=== PATIENT | male | born 1965 | race American Indian/Alaskan Native ===

== ENCOUNTER 2016-09-23 13:44 | Emergency (ER) | payer OTHER ==
[2016-09-23 14:49] VITALS: BP 137/90
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
[2016-09-23] MEDS: TORADOL IM ONE (20:35)
[2016-09-23] MEDS: VALIUM PO ONE (20:36)
== END 2016-09-23 20:30 | disposition home or self-care (01) ==
LOC: ED 13:44
DX: S13.4XXA Sprain of ligaments of cervical spine, initial encounter (principal); F17.200 Nicotine dependence, unspecified, uncomplicated; V49.49XA Driver injured in collision with other motor vehicles in traffic accident, initial encounter; Y93.9 Activity, unspecified; Y92.9 Unspecified place or not applicable; Y99.9 Unspecified external cause status
CPT/HCPCS: 96372; 99282; J1885

== ENCOUNTER 2017-06-30 10:28 | Emergency (ER) | payer SELFPAY ==
[2017-06-30] MEDS ORDERED: MOTRIN PO ONE (16:05)
[2017-06-30 16:31] LABS: Basophils % (Auto) 0.6 % (0.0-1.8); Eosinophils # (Auto) 0.1 K/mm3 (0.0-0.4); Eosinophils % (Auto) 1.8 % (0.0-4.3); Hematocrit 41.6 % (35.5-45.6); Hemoglobin 13.9 gm/dl (11.8-15.2); Lymphocytes # (Auto) 2.5 K/mm3 (1.2-5.4); Lymphocytes % (Auto) 34.5 % (13.4-35.0); Mean Corpuscular HGB Conc 33 % (32-34); Mean Corpuscular Hemoglobin 30 pg (28-32); Mean Corpuscular Volume 89 fl (84-94); Monocytes # (Auto) 0.5 K/mm3 (0.0-0.8); Monocytes % (Auto) 6.5 % (0.0-7.3); Platelet Count 226 K/mm3 (140-440); Red Blood Count 4.66 M/mm3 (3.65-5.03); Red Cell Distribution Width 14.2 % (13.2-15.2)
[2017-06-30 16:43] LABS: BUN/Creatinine Ratio 16; Blood Urea Nitrogen 14 mg/dL (9-20); Hemolysis Index 9
--- NOTE | 2017-06-30 16:49 | Emergency Department Report ---
ED Male HPI - General Chief complaint: Skin/Abscess/Foreign Body Stated complaint: BOIL Time Seen by Provider: 06/30/17 15:30 Source: patient Mode of arrival: Ambulatory Limitations: No Limitations - History of Present Illness Initial comments: 52-year-old male past medical history none presents with complaint of one week of left-sided testicular discomfort. Patient states that he has felt some testicular swelling and external discomfort on scrotum. Denies any trauma denies any falls denies any dysuria or hematuria or increased urinary frequency. Denies fevers or chills denies abdominal pain. Patient is awake alert and oriented 3 not in acute distress. MD Complaint: testicle pain, testicle swelling Onset/Timin -: week(s) Location: left testicle Severity: moderate Severity scale (0 -10): 4 Quality: aching Consistency: intermittent Improves with: none Worsens with: none new medication - Related Data Sexually active: Yes Previous Rx's Medication Instructions Recorded Last Taken Type Cyclobenzaprine [Flexeril] 10 mg PO TID PRN #20 tablet 09/23/16 Unknown Rx Naproxen [Naprosyn] 500 mg PO BID #30 tablet 09/23/16 Unknown Rx Ibuprofen [Motrin] 800 mg PO Q8HR PRN #30 tablet 06/30/17 Unknown Rx Sulfamethoxazole/Trimethoprim 1 each PO BID #14 tablet 06/30/17 Unknown Rx [Bactrim DS TAB] Allergies Allergy/AdvReac Type Severity Reaction Status Date / Time Penicillins Allergy Unknown Verified 09/23/16 14:42 ED Review of Systems ROS: Stated complaint: BOIL Other details as noted in HPI Constitutional: denies: chills, fever Eyes: denies: eye pain, eye discharge, vision change ENT: denies: ear pain, throat pain Respiratory: denies: cough, shortness of breath, wheezing Cardiovascular: denies: chest pain, palpitations Endocrine: no symptoms reported Gastrointestinal: denies: abdominal pain, nausea, diarrhea Genitourinary: testicular pain. denies: urgency, dysuria Musculoskeletal: denies: back pain, joint swelling, arthralgia Skin: denies: rash, lesions Neurological: denies: headache, weakness, paresthesias Psychiatric: denies: anxiety, depression Hematological/Lymphatic: denies: easy bleeding, easy bruising ED Past Medical Hx - Past Medical History Previous Medical History?: No - Surgical History Past Surgical History?: Yes Additional Surgical History: RIGHT KNEE SURGERY - Social History Smoking Status: Never Smoker Substance Use Type: None - Medications Home Medications: Home Medications Medication Instructions Recorded Confirmed Last Taken Type Cyclobenzaprine [Flexeril] 10 mg PO TID PRN #20 tablet 09/23/16 Unknown Rx Naproxen [Naprosyn] 500 mg PO BID #30 tablet 09/23/16 Unknown Rx Ibuprofen [Motrin] 800 mg PO Q8HR PRN #30 tablet 06/30/17 Unknown Rx Sulfamethoxazole/Trimethoprim 1 each PO BID #14 tablet 06/30/17 Unknown Rx [Bactrim DS TAB] ED Physical Exam - General Limitations: No Limitations General appearance: alert, in no apparent distress - Head Head exam: Present: atraumatic, normocephalic - Eye Eye exam: Present: normal appearance, PERRL, EOMI - ENT ENT exam: Present: mucous membranes moist - Neck Neck exam: Present: normal inspection - Respiratory Respiratory exam: Present: normal lung sounds bilaterally. Absent: respiratory distress - Cardiovascular Cardiovascular Exam: Present: regular rate, normal rhythm. Absent: systolic murmur, diastolic murmur, rubs, gallop - GI/Abdominal GI/Abdominal exam: Present: soft, normal bowel sounds - Rectal Rectal exam: Present: deferred - exam: Present: scrotal swelling (some external left-sided scrotal swelling. No perineal swelling or crepitus on exam no clinical signs of Raul's gangrene no erythema or significant fluctuance on palpation) External exam: Present: normal external exam - Extremities Exam Extremities exam: Present: normal inspection - Back Exam Back exam: Present: normal inspection - Neurological Exam Neurological exam: Present: alert, oriented X3, CN II-XII intact, normal gait - Psychiatric Psychiatric exam: Present: normal affect, normal mood - Skin Skin exam: Present: warm, dry, intact, normal color. Absent: rash ED Course Vital Signs 06/30/17 06/30/17 11:29 18:45 Temperature 97.9 F 98.3 F Pulse Rate 58 L 57 L Respiratory 16 18 Rate Blood Pressure 145/79 Blood Pressure 157/96 [Right] O2 Sat by Pulse 99 100 Oximetry ED Medical Decision Making - Lab Data Result diagrams: 06/30/17 16:15 06/30/17 16:15 - Medical Decision Making A/P: Left scrotal cellulitis 1-Bactrim twice a day 7 days, Motrin when necessary 2-sitz baths for the next week 3-48 hour follow-up in the ED. I specifically advised patient to return to the ED sooner for any worsening symptoms including increased testicular swelling pain nausea vomiting fever or chills any difficulty defecating or fevers and chills. Patient stated he understood my instructions clearly 4- case discussed with Dr. Morton before discharge. Critical care attestation.: If time is entered above; I have spent that time in minutes in the direct care of this critically ill patient, excluding procedure time. ED Disposition Clinical Impression: Cellulitis of scrotum, Scrotal pain Disposition: TO HOME OR SELFCARE Is pt being admited?: No Does the pt Need Aspirin: No Condition: Stable Instructions: Cellulitis (ED), Sitz Bath (GEN) Additional Instructions: 48 hour cellulitis check in the ED 07/02 Prescriptions: Ibuprofen [Motrin] 800 mg PO Q8HR PRN #30 tablet PRN Reason: Pain Sulfamethoxazole/Trimethoprim [Bactrim DS TAB] 1 each PO BID #14 tablet Referrals: [facility] [Outside] - 3-[address] [facility] [Outside] - 3-5 Days [facility] [Provider Group] - 3-5 Days Forms: Work/School Release Form(ED) Time of Disposition: 18:32
--- NOTE | 2017-06-30 17:51 | Ultrasound Report ---
FINAL REPORT PROCEDURE: Scrotal ultrasound. TECHNIQUE: Real-time espinoza-scale and color flow Doppler sonography in multiple planes of the scrotum, testicles, and epididymes was performed. Velocity spectral waveform analysis Doppler imaging of the arterial inflow and venous outflow of the testicles was performed with image documentation. CPT 50370 and 51010 HISTORY: Left testicle pain, scrotal boil that was drained. COMPARISON: No prior studies are available for comparison. FINDINGS: Both testes have uniform echogenicity. There are no focal masses identified. There is normal testicular blood flow demonstrated bilaterally. The epididymal heads appear normal. There are small bilateral hydroceles. There is probable thickening of the scrotal skin on the left side. There are no skin abscesses identified. IMPRESSION: Small bilateral hydroceles. Left sided scrotal wall thickening.
[2017-06-30] MEDS ORDERED: BACTRIM DS PO ONE (18:27)
[2017-06-30 18:47] VITALS: BP 157/96
[2017-06-30 19:10] LABS: Bilirubin,Urine NEG (Negative); Blood,Urine NEG (Negative); Color,Urine Yellow (Yellow); Nitrite,Urine NEG (Negative); Protein,Urine <15 mg/dL mg/dL (Negative)
== END 2017-06-30 18:54 | disposition home or self-care (01) ==
LOC: ED 10:28
DX: N49.2 Inflammatory disorders of scrotum (principal); Z88.0 Allergy status to penicillin
CPT/HCPCS: 36415; 80048; 81001; 82140; 85025; 87086; 93975